=== PATIENT | male | born 1995 | race Caucasian/White ===

== ENCOUNTER 2024-09-24 17:19 | Emergency (ER) | payer OTHER ==
[~2024-09-24] VITALS: Ht 185.4 cm; Wt 106.1 kg
[2024-09-24 17:30] VITALS: BP 134/70; TEMP 98.8; O2SAT 98
[2024-09-24] MEDS ORDERED: ADDE1TAB14 PO (18:28)
[2024-09-24] MEDS ORDERED: AMPH1CAP16 (18:28)
[2024-09-24] MEDS: ACETAMINOPHEN 325 MG TAB PO ONE (19:40)
== END 2024-09-24 20:09 | disposition home or self-care (01) ==
LOC: M ED 17:19
DX: S83.411A Sprain of medial collateral ligament of right knee, initial encounter (principal); X58.XXXA Exposure to other specified factors, initial encounter; F90.9 Attention-deficit hyperactivity disorder, unspecified type; Y92.9 Unspecified place or not applicable; Y93.89 Activity, other specified; Y99.1 Military activity; Z79.899 Other long term (current) drug therapy